=== PATIENT | male | born 1940 | race Caucasian/White ===

== ENCOUNTER 2021-09-07 08:13 | Emergency (ER) | payer MEDICARE, OTHER ==
[~2021-09-07] VITALS: Ht 177.8 cm; Wt 87.5 kg
[2021-09-07 09:50] LABS: ABSOLUTE NEUTROPHILS 7.5 thou/uL (1.4-8.2); BASOPHILS 0.2 % (0.0-2.0); EOSINOPHILS 2.2 % (0.0-3.0); HEMATOCRIT 42.1 % (42.0-52.0); HEMOGLOBIN 13.8 gm/dL (14.0-18.0); LYMPHOCYTES 9.2 % (24.0-44.0); MCH 29.2 pg (26.0-34.0); MCHC 32.7 g/dL (28.0-37.0); MCV 89.2 fL (80.0-100.0); MONOCYTES 7.8 % (1.0-8.0); PLATELET COUNT 127 thou/uL (150-400); POLYS 80.6 % (36.0-66.0); RBC 4.72 mil/uL (4.50-6.00); RDW 14.1 % (10.5-14.5); WBC 9.3 thou/uL (4.0-11.0)
[2021-09-07 09:57] LABS: CALCIUM 9.7 mg/dL (8.5-10.1); POTASSIUM 4.8 mmol/L (3.5-5.1)
[2021-09-07] MEDS ORDERED: DOXYCYCLINE 10100 MG PO (10:53)
[2021-09-07 11:09] VITALS: BP 127/75
--- NOTE | 2021-09-08 09:53 | EKG ---
[address] [address] ELECTROCARDIOGRAM REPORT Name: TIM BRAR [id number] Admission: 09/07/21 Attend Phys: Discharge: 09/07/21 Date of : 42 Report #: [id number] [facility] ED Test Date: 2021-09-07 Test Time: 08:20:27 Pat Name: TIM BRAR Department: Room: Gender: Hood Maker: CECILIA : 1940 Requested By: Jian Casey Order Number: [id number] MD: Raciel Baer Measurements Intervals [place] Rate: 100 P: MT: QRS: 47 QRSD: 158 T: 0 QT: 348 QTc: 449 Interpretive Statements Atrial fibrillation Right bundle branch block Inferolateral infarct, old No previous ECG available for comparison Electronically Signed On 09-08-2021 9:52:45 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
== END 2021-09-07 11:09 | disposition home or self-care (01) ==
LOC: ER 08:13
PROVIDERS: Student in an Organized Health Care Education/Training Program
DX: J15.9 Unspecified bacterial pneumonia (principal); Z20.822 Contact with and (suspected) exposure to COVID-19